=== PATIENT | female | born 1985 | race Caucasian/White ===

== ENCOUNTER 2017-01-29 09:06 | Emergency (ER) | payer MEDICAID ==
[~2017-01-29] VITALS: Ht 157.5 cm; Wt 76.7 kg
[2017-01-29 09:15] VITALS: BP 112/70
== END 2017-01-29 10:16 | disposition home or self-care (01) ==
LOC: ED 09:06
DX: B34.9 Viral infection, unspecified (principal); N39.0 Urinary tract infection, site not specified
CPT/HCPCS: J1885; J7613; J7644; Q0162

== ENCOUNTER 2018-12-22 13:53 | Emergency (ER) | payer MEDICAID ==
[~2018-12-22] VITALS: Ht 160 cm; Wt 81.6 kg
[2018-12-22 13:59] VITALS: Ht 160 cm; Wt 81.6 kg
[2018-12-22 18:23] VITALS: BP 102/71
== END 2018-12-22 18:23 | disposition home or self-care (01) ==
LOC: ED 13:53
DX: L02.415 Cutaneous abscess of right lower limb (principal)
CPT/HCPCS: J2001

== ENCOUNTER 2018-12-24 16:01 | Emergency (ER) | payer MEDICAID ==
[~2018-12-24] VITALS: Ht 160 cm; Wt 82.1 kg
[2018-12-24 16:12] VITALS: Ht 160 cm; Wt 82.1 kg
[2018-12-24 18:45] VITALS: BP 100/59
== END 2018-12-24 18:45 | disposition home or self-care (01) ==
LOC: ED 16:01
DX: L02.214 Cutaneous abscess of groin (principal); Z48.01 Encounter for change or removal of surgical wound dressing